=== PATIENT | male | born 1995 | race Caucasian/White ===

== ENCOUNTER → 2018-08-25 | Outpatient (CLI) | payer OTHER | LOC: FIMAGING 14:55 | PROVIDERS: ATTEND Psychiatry & Neurology Neurology | DX: G43.009 Migraine without aura, not intractable, without status migrainosus (principal); F41.9 Anxiety disorder, unspecified; R40.4 Transient alteration of awareness; R93.0 Abnormal findings on diagnostic imaging of skull and head, not elsewhere classified | CPT/HCPCS: 70551-PN ==

== ENCOUNTER → 2018-09-18 | Outpatient (CLI) | payer OTHER ==
--- NOTE | 2018-09-19 10:30 | CPEEG ---
[f rep st] ELECTROENCEPHALOGRAM DATE OF STUDY: INTERPRETATION: This 4-hour video EEG recording is normal. There were no potentially epileptogenic abnormalities present during the awake or sleep recordings. The patient did not have any clinical ev ents during the video EEG monitoring session. REPORT: This 4-hour video EEG contains 10 Hz of alpha activity to the posterior head regions. The b ackground activity was normal and symmetric. There was no abnormal activation at rest, during hyperv entilation or photic stimulation. The patient became drowsy and fell into sustained sleep during the study. There was no abnormal activation during drowsiness, sleep, or during times of arousal. The patient did not have any clinical events during the video EEG monitoring session. /[id number]/MODL
== END ==
LOC: FCPNEURO 11:20
PROVIDERS: ATTEND Psychiatry & Neurology Neurology
DX: G43.009 Migraine without aura, not intractable, without status migrainosus (principal); R40.4 Transient alteration of awareness; F41.9 Anxiety disorder, unspecified